=== PATIENT | male | born 1955 | race Caucasian/White ===

== ENCOUNTER 2023-11-07 10:35 | Outpatient (RCR) | payer MEDICARE, OTHER, SELFPAY ==
[2023-11-07 10:43] VITALS: BMI 31.1
== END 2024-01-27 10:26 | disposition home or self-care (01) ==
LOC: ANHDMC 10:35
PROVIDERS: Visit Provider Family Medicine
DX: E78.00 Pure hypercholesterolemia, unspecified (principal); Z71.3 Dietary counseling and surveillance
CPT/HCPCS: 97802